=== PATIENT | female | born 2000 | race Caucasian/White ===

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

== ENCOUNTER 2021-07-05 10:09 | Emergency (ER) | payer OTHER ==
[~2021-07-05] VITALS: Ht 154.9 cm; Wt 68.6 kg
[2021-07-05 10:09] VITALS: BP 138/87
[2021-07-05] MEDS ORDERED: ACETAMINOPHEN TAB 650MG DOSE (2X325MG) PO ONE (12:40)
[2021-07-05] MEDS ORDERED: LORATADINE 10 MG TAB PO ONE (12:50)
== END 2021-07-05 14:16 | disposition home or self-care (01) ==
LOC: M ED 10:09
DX: U07.1 COVID-19 (principal)

== ENCOUNTER 2021-08-18 09:31 | Emergency (ER) | payer OTHER ==
[~2021-08-18] VITALS: Ht 154.9 cm; Wt 72.0 kg
[2021-08-18] MEDS ORDERED: PREN27TA3 (09:39)
[2021-08-18] MEDS ORDERED: ONDANSETRON 4MG/2ML VIAL IV ONE (11:25)
[2021-08-18] MEDS ORDERED: NS 1,000 ML IV ONE (11:25)
[2021-08-18] MEDS ORDERED: ACETAMINOPHEN 500 MG TAB PO ONE (11:25)
[2021-08-18 12:00] LABS: BASO % 0.3 % (0.0-1.0); EOS % 0.3 % (0.0-3.0); HEMATOCRIT 38.4 % (36.0-47.0); HEMOGLOBIN 13.1 g/dl (12.0-15.5); LYMPH # 1.7 10^3/uL (1.5-5.0); LYMPH % 18.8 % (24.0-44.0); MEAN CORPUSCULAR HEMOGLOBIN 28.1 pg (27.0-33.0); MEAN CORPUSCULAR HGB CONC 34.1 g/dl (32.0-36.5); MEAN CORPUSCULAR VOLUME 82.2 fl (80.0-96.0); MONO # 0.5 10^3/uL (0.0-0.8); MONO % 5.2 % (2.0-8.0); NEUTROPHILS # 6.9 10^3/uL (1.5-8.5); NEUTROPHILS % 75.1 % (36.0-66.0); PLATELET COUNT, AUTOMATED 161 10^3/uL (150-450); RED BLOOD COUNT 4.67 10^6/uL (4.00-5.40); WHITE BLOOD COUNT 9.1 10^3/uL (4.0-10.0)
[2021-08-18 12:34] LABS: FREE T4 1.04 NG/DL (0.78-1.33); THYROID STIMULATING HORMONE 1.19 uIU/ML (0.463-3.98)
[2021-08-18 12:47] LABS: RSV AMPLIFICATION NEGATIVE (NEGATIVE)
[2021-08-18] MEDS ORDERED: ONDA4TAB6 PO (13:28)
[2021-08-18 13:58] VITALS: BP 111/71
== END 2021-08-18 14:00 | disposition home or self-care (01) ==
LOC: M ED 09:31
DX: O99.352 Diseases of the nervous system complicating pregnancy, second trimester (principal); O99.342 Other mental disorders complicating pregnancy, second trimester; O99.512 Diseases of the respiratory system complicating pregnancy, second trimester; Z3A.14 14 weeks gestation of pregnancy
CPT/HCPCS: 80047; 83735; 84439; 84443; 85025; 87631; 87880; 96361; 96374; 99284; J2405

== ENCOUNTER 2021-09-25 05:59 | Emergency (ER) | payer OTHER ==
[~2021-09-25] VITALS: Ht 154.9 cm; Wt 75.9 kg
[~2021-09-25 05:59] MED LIST changes: +ONDA4TAB6 PO; +PREN27TA3
[2021-09-25] MEDS ORDERED: MAGN200T PO (06:04)
[2021-09-25 08:43] LABS: RSV AMPLIFICATION NEGATIVE (NEGATIVE)
[2021-09-25] MEDS ORDERED: BENZ200C70 PO (09:50)
[2021-09-25 10:23] VITALS: BP 102/68
== END 2021-09-25 10:24 | disposition home or self-care (01) ==
LOC: M ED 05:59
DX: O98.511 Other viral diseases complicating pregnancy, first trimester (principal); B34.8 Other viral infections of unspecified site; Z87.891 Personal history of nicotine dependence

== ENCOUNTER 2022-01-26 14:34 | Outpatient (CLI) | payer OTHER ==
[~2022-01-26] VITALS: Ht 154.9 cm; Wt 85.8 kg
[~2022-01-26 14:34] MED LIST changes: +BENZ200C70 PO; +MAGN200T PO
[2022-01-26 14:45] VITALS: BP 120/68
[2022-01-26] MEDS ORDERED: FERR325T3 PO (14:54)
[2022-01-26] MEDS ORDERED: HOME MED LIST COMPLETE! XX SCH (15:00)
[2022-01-26] MEDS ORDERED: FLUCONAZOLE 50MG TABLET PO ONE (15:45)
== END 2022-01-26 15:57 | disposition home or self-care (01) ==
LOC: M LDO 14:34
PROVIDERS: ATTEND Obstetrics & Gynecology
DX: O23.593 Infection of other part of genital tract in pregnancy, third trimester (principal); Z3A.37 37 weeks gestation of pregnancy
CPT/HCPCS: 59025; 76815; G0378; G0463

== ENCOUNTER 2022-02-10 05:34 | Inpatient (IN) | payer OTHER ==
[~2022-02-10] VITALS: Ht 154.9 cm; Wt 87.1 kg
[2022-02-10] VITALS (34 sets, daily range): BP systolic 96–221; BP diastolic 50–135
[~2022-02-10 05:34] MED LIST changes: +FERR325T3 PO
[2022-02-10] MEDS ORDERED: LACTATED RINGER'S 1000 ML IV STA (06:04)
[2022-02-10] MEDS ORDERED: OXYTOCIN INJ 10 UNITS/ML VIAL (J2590) IM PRN (06:05)
[2022-02-10] MEDS ORDERED: LIDOCAINE 1% MDV 20ML VIAL INFIL PRN (06:05)
[2022-02-10] MEDS ORDERED: TRANEXAMIC ACID INJection 1,000 MG in NS 100 ML IV PRN (06:05)
[2022-02-10] MEDS ORDERED: LR 1,000 ML IV SCH (06:05)
[2022-02-10] MEDS ORDERED: CARBOPROST TROMETHAMINE 250 MCG/ML AMP IM PRN (06:05)
[2022-02-10] MEDS ORDERED: METHYLERGONOVINE MALEATE 0.2 MG/ML VIAL (J2210) IM PRN (06:05)
[2022-02-10] MEDS ORDERED: OXYTOCIN DRIP 30 UNITS in IV 1 EA IV PRN ×4 (06:05)
[2022-02-10 06:22] LABS: HEMATOCRIT 34.4 % (36.0-47.0); HEMOGLOBIN 11.4 g/dl (12.0-15.5); MEAN CORPUSCULAR HEMOGLOBIN 27.5 pg (27.0-33.0); MEAN CORPUSCULAR HGB CONC 33.1 g/dl (32.0-36.5); MEAN CORPUSCULAR VOLUME 83.1 fl (80.0-96.0); PLATELET COUNT, AUTOMATED 205 10^3/uL (150-450); RED BLOOD COUNT 4.14 10^6/uL (4.00-5.40); WHITE BLOOD COUNT 17.2 10^3/uL (4.0-10.0)
[2022-02-10] MEDS ORDERED: FENTANYL 2MCG/ML ROPIVACAINE 0.2% IN 0.9% NACL 100ML IVBAG As Ordered ONE (07:20)
[2022-02-10] MEDS ORDERED: FENTANYL/ROPIVACAINE/NACL BAG 100 ML EPIDURAL SCH (07:30)
[2022-02-10] MEDS ORDERED: diphenhydrAMINE 50MG/ML VIAL (J1200) IV PRN (07:30)
[2022-02-10] MEDS ORDERED: ePHEDrine SULFATE 25 MG/5 ML(5MG/ML) SYRINGE IVP PRN (07:30)
[2022-02-10] MEDS ORDERED: ONDANSETRON 4MG 2ML VIAL IV PRN (07:30)
[2022-02-10] MEDS ORDERED: NALOXONE INJ 0.4MG/1ML VIAL (J2310 PER 1MG) IV PRN (07:30)
[2022-02-10] MEDS ORDERED: LR 500 ML IV PRN (07:30)
[2022-02-10] MEDS ORDERED: EPIDURAL/PCA KEYS XX PRN (07:30)
[2022-02-10] MEDS ORDERED: PRENTAB9 PO (09:43)
[2022-02-10] MEDS ORDERED: OXYTOCIN DRIP 30 UNITS in IV 1 EA IV SCH (11:55)
[2022-02-10] MEDS ORDERED: DIBUCAINE 1% OINTMENT 30GM TOP PRN (13:25)
[2022-02-10] MEDS ORDERED: ANUSOL HC CREAM 30GM TOP PRN (13:25)
[2022-02-10] MEDS ORDERED: DOCUSATE SODIUM 100MG CAPSULE PO PRN (13:25)
[2022-02-10] MEDS ORDERED: METHYLERGONOVINE MALEATE 0.2 MG TAB PO PRN (13:25)
[2022-02-10] MEDS: ACETAMINOPHEN 500 MG TAB PO PRN (17:01)
[2022-02-10] MEDS: IBUPROFEN 800 MG TAB PO PRN (18:43)
[2022-02-11] MEDS: ACETAMINOPHEN 500 MG TAB PO PRN (00:46)
[2022-02-11] MEDS: IBUPROFEN 800 MG TAB PO PRN ×2 (05:05→16:05)
[2022-02-11 06:00] VITALS: BP 134/83
[2022-02-11] MEDS: PRENATAL VITAMINS CHEWABLE TABLET PO SCH (08:07)
[2022-02-11 18:00] VITALS: BP 118/67
[2022-02-12] MEDS: IBUPROFEN 800 MG TAB PO PRN (00:10)
[2022-02-12 06:00] VITALS: BP 122/67
[2022-02-12] MEDS: PRENATAL VITAMINS CHEWABLE TABLET PO SCH (08:12)
[2022-02-12] MEDS ORDERED: MEASLES,MUMPS,RUBELLA VACCINE INJ (MMR-II) (90707) SC.IMMUN ONE (09:00)
== END 2022-02-12 11:05 | disposition home or self-care (01) | DRG 807 ==
LOC: M LDO 05:34 → M LDI 05:49 → M OBS 15:17
PROVIDERS: ADMIT Obstetrics & Gynecology; ATTEND Obstetrics & Gynecology
PROC: 10E0XZZ Delivery of Products of Conception, External Approach (ICD-10-PCS; principal; 2022-02-10)
PROC: 0HQ9XZZ Repair Perineum Skin, External Approach (ICD-10-PCS; 2022-02-10)
DX: O70.0 First degree perineal laceration during delivery (principal); Z37.0 Single live birth; Z3A.39 39 weeks gestation of pregnancy

== ENCOUNTER 2022-09-26 02:50 | Day surgery (SDC) | payer OTHER ==
[~2022-09-26] VITALS: Ht 154.9 cm; Wt 78.6 kg
[2022-09-26] VITALS (8 sets, daily range): BP systolic 111–124; BP diastolic 55–71
[~2022-09-26 02:50] MED LIST changes: +KETOROLAC 30 MG/ML 1ML VIAL IV PRN; +LR 1,000 ML IV SCH; +MORPHINE 2 MG/ML 1ML VIAL IV PRN; +MORPHINE 4 MG/ML 1ML VIAL IV PRN; +ONDANSETRON 4MG 2ML VIAL IV PRN; +PRENTAB9 PO
[2022-09-26] MEDS: AMPICILLIN SOD/SULBACTAM SOD 3 GM in D5W MINI-BAG PLUS 100 ML IV SCH ×3 (03:45→15:11)
[2022-09-26] MEDS ORDERED: BUPIVACAINE HCL 0.25% 30ML VIAL As Ordered ONE (09:08)
[2022-09-26] MEDS ORDERED: LIDOCAINE 1% SDV 30ML VIAL As Ordered ONE (09:08)
[2022-09-26] MEDS ORDERED: ONDANSETRON 4MG 2ML VIAL IV PRN (09:10)
[2022-09-26] MEDS ORDERED: fentaNYL 100 MCG/2 ML INJECTION IV PRN (09:10)
[2022-09-26] MEDS ORDERED: oxyCODONE 5MG TAB PO PRN (09:10)
[2022-09-26] MEDS ORDERED: LR 1,000 ML IV SCH (09:10)
[2022-09-26] MEDS ORDERED: SUGAMMADEX SODIUM 500 MG/5 ML VIAL (BRIDION) As Ordered ONE (09:55)
[2022-09-26] MEDS ORDERED: LIDOCAINE 2% 100MG/5ML SDV (FOR ANES.) As Ordered ONE (09:57)
[2022-09-26] MEDS ORDERED: fentaNYL 250 MCG/5 ML INJECTION As Ordered ONE (09:57)
[2022-09-26] MEDS ORDERED: ROCURONIUM BROMIDE 50MG/5ML VIAL As Ordered ONE (09:57)
[2022-09-26] MEDS ORDERED: KETOROLAC 60MG 2ML VIAL As Ordered ONE (09:57)
[2022-09-26] MEDS ORDERED: ONDANSETRON 4MG 2ML VIAL As Ordered ONE (09:57)
[2022-09-26] MEDS ORDERED: propofoL 200 MG/20 ML VIAL As Ordered ONE (09:57)
[2022-09-26] MEDS ORDERED: MIDAZOLAM INJ 2MG/2ML VIAL As Ordered ONE (09:57)
[2022-09-26] MEDS ORDERED: ACETAMINOPHEN 1000MG 100ML IV BAG As Ordered ONE (09:57)
[2022-09-26] MEDS ORDERED: OXYC1TAB23 PO (15:56)
[2022-09-26] MEDS ORDERED: LEVO1TAB40 PO (15:56)
== END 2022-09-26 16:44 | disposition home or self-care (01) ==
LOC: M PED 02:50 → UNDOADMIN 02:50 → M SDC 02:50 → EDSTATUS 14:02 → UNDODISIN 16:44 → M SDC 16:44
PROVIDERS: ATTEND Surgery
DX: K35.890 Other acute appendicitis without perforation or gangrene (principal); G43.909 Migraine, unspecified, not intractable, without status migrainosus; J45.909 Unspecified asthma, uncomplicated; F32.A Depression, unspecified; Z88.5 Allergy status to narcotic agent; F17.200 Nicotine dependence, unspecified, uncomplicated
CPT/HCPCS: 44970; 88304; J0131; J0295; J1100; J1885; J2250; J2405; J3010; S0020